=== PATIENT | male | born 1945 | race Caucasian/White ===

== ENCOUNTER 2018-08-12 04:33 | Emergency (ER) | payer MEDICARE ==
[~2018-08-12] VITALS: Ht 177.8 cm; Wt 77.1 kg
[~2018-08-12 04:33] MED LIST: AMAN100; AMOX500 PO; CARB25 PO; CARBI50; CART1OPSO BOTHEYES; DOXY100 PO; LATA.005SO LEFTEYE; SIMV10 PO; TAMS.4ER PO
[2018-08-12 05:04] LABS: Source, Urine Catheter
[2018-08-12 05:06] LABS: Bilirubin, Urine Neg (Neg); Blood, Urine Neg (Neg); Glucose Qualitative, Urine Neg (Neg); Ketones, Urine Neg (Neg); Leukocyte Esterase, Urine Neg (Neg); Nitrite, Urine Neg (Neg); Protein, Urine Neg (Neg); Urobilinogen, Urine NORM (Normal); pH, Urine 6.5 (5.0-8.0)
[2018-08-12 05:11] LABS: Appearance, Urine Clear (Clear); Color, Urine Yellow (P-Yellow)
== END 2018-08-12 05:41 | disposition home or self-care (01) ==
LOC: ER 04:33
PROVIDERS: Emergency Medicine
DX: R33.9 Retention of urine, unspecified (principal); Z88.8 Allergy status to other drugs, medicaments and biological substances; Z79.899 Other long term (current) drug therapy
CPT/HCPCS: 51702; 51798; 81003; 99283

== ENCOUNTER 2018-11-21 03:58 | Emergency (ER) | payer MEDICARE ==
[~2018-11-21] VITALS: Ht 177.8 cm; Wt 77.1 kg
[2018-11-21] MEDS ORDERED: Keflex500 MG PO (08:09)
== END 2018-11-21 08:30 | disposition home or self-care (01) ==
LOC: ER 03:58
DX: S01.311A Laceration without foreign body of right ear, initial encounter (principal); G20 Parkinson's disease; W06.XXXA Fall from bed, initial encounter; Z88.8 Allergy status to other drugs, medicaments and biological substances; Z79.899 Other long term (current) drug therapy
CPT/HCPCS: 12052; 90471; 90714; 99282-25

== ENCOUNTER → 2021-10-20 | Outpatient (CLI) | payer MEDICARE ==
[~2021-10-20] MED LIST changes: +Keflex500 MG PO
[2021-10-20 11:45] LABS: BASOPHILS ABSOLUTE AUTO 0.03 K/mm3 (0.00-0.23); BASOPHILS PERCENT AUTO 1 % (0-2); EOSINOPHILS ABSOLUTE AUTO 0.07 K/mm3 (0.00-0.68); EOSINOPHILS PERCENT AUTO 1 % (0-6); Hematocrit 39.2 % (37.0-53.0); Hemoglobin 13.1 g/dL (13.5-17.5); IMMATURE GRAN ABSOLUTE AUTO 0.02 K/mm3 (0.00-0.10); IMMATURE GRAN PERCENT AUTO 0 % (0-1); LYMPHOCYTES ABSOLUTE AUTO 0.92 K/mm3 (0.84-5.20); LYMPHOCYTES PERCENT AUTO 18 % (21-46); MONOCYTES ABSOLUTE AUTO 0.97 K/mm3 (0.16-1.47); MONOCYTES PERCENT AUTO 19 % (4-13); Mean Corpuscular HGB 31.1 pg (26.0-34.0); Mean Corpuscular HGB Conc 33.4 g/dL (31.5-36.5); Mean Corpuscular Volume 93 fL (80-100); NEUTROPHILS ABSOLUTE AUTO 3.11 K/mm3 (1.96-9.15); NEUTROPHILS PERCENT AUTO 61 % (41-73); RDW Coefficient Variation 13.1 % (11.7-14.2); RDW Standard Deviation 44.3 fL (35.1-46.3); Red Blood Cell Count 4.21 M/mm3 (4.30-5.90); White Blood Cell Count 5.12 K/mm3 (4.00-11.30)
[2021-10-20 12:01] LABS: Mean Platelet Volume 10.6 fL (9.1-12.4); Platelet Count 133 K/mm3 (150-400)
[2021-10-20 12:09] LABS: Alanine Aminotransfer (ALT/SGP 8 U/L (12-78); Albumin, Blood 3.9 g/dL (3.4-5.0); Albumin/Globulin Ratio 1.4 (0.8-1.8); Alk Phos 69 U/L (40-126); Anion Gap 10 mmol/L (6-16); Aspartate Aminotrans (AST/SGOT 14 U/L (12-37); Bilirubin, Total 1.1 mg/dL (0.1-1.0); Blood Urea Nitrogen 18 mg/dL (8-24); CO2, Blood 26 mmol/L (21-32); Calcium, Blood 8.9 mg/dL (8.5-10.1); Chloride, Blood 109 mmol/L (98-108); Creatinine, Blood 1.06 mg/dL (0.60-1.20); Globulin, Blood 2.7 g/dL (2.2-4.0); Glomerular Filtration Rate >60 (60-); Glucose, Blood 119 mg/dL (70-99); Potassium, Blood 4.3 mmol/L (3.5-5.5); Sodium, Blood 145 mmol/L (136-145); Thyroid Stimulating Hormone 0.679 uIU/mL (0.360-4.800); Total Protein, Blood 6.6 g/dL (6.4-8.2)
== END ==
LOC: LAB SHORT 11:32
PROVIDERS: Physician Assistant
DX: R06.00 Dyspnea, unspecified (principal); R53.83 Other fatigue
CPT/HCPCS: 80053; 83880; 84443; 84484; 85025; 85379

== ENCOUNTER 2023-07-20 01:52 | Inpatient (IN) | payer MEDICARE ==
[2023-07-20] VITALS (9 sets, daily range): BP systolic 106–155; BP diastolic 55–89
[~2023-07-20] VITALS: Ht 177.8 cm; Wt 83.6 kg
[2023-07-20] MEDS ORDERED: OMEP20ER PO (04:42)
[2023-07-20] MEDS ORDERED: GLYC2 PO (04:42)
[2023-07-20] MEDS ORDERED: CARBIDOPA-LEVO1 EA15 PO (04:43)
[2023-07-20] MEDS ORDERED: MEMA10 PO (04:44)
[2023-07-20] MEDS ORDERED: QUET25 PO (04:44)
[2023-07-20] MEDS ORDERED: Seroquel Xr150 MG PO (04:45)
[2023-07-20] MEDS ORDERED: DONE5 PO (04:45)
[2023-07-20] MEDS ORDERED: METFORMIN ER G500 MG PO (04:45)
[2023-07-20] MEDS ORDERED: THERA-D2000 UNIT PO (04:46)
[2023-07-20] MEDS ORDERED: ATOR40TA PO (04:46)
[2023-07-20] MEDS ORDERED: OPTH BOTHEYES (04:47)
[2023-07-20] MEDS ORDERED: [UNRECOGNIZED DRUG - OTHER] BOTHEYES (04:47)
[2023-07-20] MEDS ORDERED: [UNRECOGNIZED DRUG - CODE] BOTHEYES (04:47)
[2023-07-20 06:07] LABS: BASOPHILS ABSOLUTE AUTO 0.03 K/mm3 (0.00-0.23); BASOPHILS PERCENT AUTO 0 % (0-2); EOSINOPHILS PERCENT AUTO 0 % (0-6); Hematocrit 43.1 % (37.0-53.0); Hemoglobin 14.3 g/dL (13.5-17.5); IMMATURE GRAN ABSOLUTE AUTO 0.04 K/mm3 (0.00-0.10); IMMATURE GRAN PERCENT AUTO 0 % (0-1); LYMPHOCYTES ABSOLUTE AUTO 0.63 K/mm3 (0.84-5.20); LYMPHOCYTES PERCENT AUTO 5 % (21-46); MONOCYTES ABSOLUTE AUTO 0.92 K/mm3 (0.16-1.47); MONOCYTES PERCENT AUTO 8 % (4-13); Mean Corpuscular HGB 30.2 pg (26.0-34.0); Mean Corpuscular HGB Conc 33.2 g/dL (31.5-36.5); Mean Corpuscular Volume 91 fL (80-100); Mean Platelet Volume 10.9 fL (9.1-12.4); NEUTROPHILS ABSOLUTE AUTO 10.31 K/mm3 (1.96-9.15); NEUTROPHILS PERCENT AUTO 86 % (41-73); Platelet Count 156 K/mm3 (150-400); RDW Coefficient Variation 13.2 % (11.7-14.2); RDW Standard Deviation 43.8 fL (35.1-46.3); Red Blood Cell Count 4.74 M/mm3 (4.30-5.90); White Blood Cell Count 11.93 K/mm3 (4.00-11.30)
[2023-07-20 06:33] LABS: Albumin, Blood 4.3 g/dL (3.4-5.0); Albumin/Globulin Ratio 1.4 (0.8-1.8); Bilirubin, Total 0.7 mg/dL (0.1-1.0); Bun/Creatinine Ratio 31.9 (12.0-20.0); Calcium, Blood 9.3 mg/dL (8.5-10.1); Creatinine, Blood 1.19 mg/dL (0.60-1.20); Globulin, Blood 3.1 g/dL (2.2-4.0); Magnesium, Blood 2.2 mg/dL (1.6-2.4); Potassium, Blood 4.4 mmol/L (3.5-5.5); Total Protein, Blood 7.4 g/dL (6.4-8.2)
[2023-07-20 06:37] LABS: Base Excess Venous 2.1 mmol/L; Bicarbonate Venous 24.7 mmol/L (24.0-30.0); PCO2 Venous 57.7 mmHg (38-42)
[2023-07-20 06:58] LABS: Influenza A, PCR NEGATIVE (NEGATIVE); Influenza B, PCR NEGATIVE (NEGATIVE); Resp Syncytial Virus, PCR NEGATIVE (NEGATIVE); SARS-Cov-2 (COVID-19) PCR, MMC NEGATIVE (NEGATIVE)
--- NOTE | 2023-07-20 08:13 | NUR ---
ASSUMED CARE: PT ARRIVED TO ROOM WITH 3L O2 IN PLACE. AWAKE AND TALKING TO STAFF. AT BEDSIDE. NSR AT 85 ON TELE. ASSISTED WITH URINAL AND PLACED CLEAN ATTENDS. CALL LIGHT IN REACH. ASKING ABOUT WATER. REVIEWING ORDERS AT THIS TIME.
[2023-07-20] MEDS ORDERED: VITAMIN D350 MC3 PO (08:27)
--- NOTE | 2023-07-20 08:58 | NUR ---
CALL TO DR BENTON TO RELAY PT'S CURRENT STATUS AND PT AND FAMILY ASKING ABOUT EATING. ORDERED SPEECH EVALUATION. NPO AT THIS TIME.
--- NOTE | 2023-07-20 09:39 | NUR ---
SPEECH THERAPIST AT BEDSIDE
--- NOTE | 2023-07-20 09:57 | NUR ---
DR BENTON NOTIFIED OF SPEECH EVALUATION. STATES SHE WILL REVIEW ORAL MEDS AND ORDER ABLE. DENTAL HYGIENIST AT BEDSIDE NOW
--- NOTE | 2023-07-20 17:41 | NUR ---
SHIFT SUMMARY: PT NEW ADMIT TODAY. CURRENTLY ON 3L O2 VIA NC. NSR IN 70S ON TELE. EVALUATED BY SPEECH THERAPY TODAY WITH PLANS FOR BARIUM SWALLOW TOMORROW. FAMILY AWARE AND HAVE BEEN EDUCATED AND UPDATED ON STATUS. NO ACUTE NEEDS OR CONCERNS AT THIS TIME.
[2023-07-21 04:12] VITALS: BP 133/64
[2023-07-21 05:36] LABS: Hematocrit 37.3 % (37.0-53.0); Hemoglobin 12.4 g/dL (13.5-17.5); Mean Corpuscular HGB Conc 33.2 g/dL (31.5-36.5); Mean Corpuscular Volume 90 fL (80-100); Mean Platelet Volume 11.1 fL (9.1-12.4); Platelet Count 132 K/mm3 (150-400); RDW Coefficient Variation 13.3 % (11.7-14.2); RDW Standard Deviation 44.4 fL (35.1-46.3); Red Blood Cell Count 4.13 M/mm3 (4.30-5.90); White Blood Cell Count 10.26 K/mm3 (4.00-11.30)
[2023-07-21 05:58] LABS: Bun/Creatinine Ratio 36.1 (12.0-20.0); Calcium, Blood 8.8 mg/dL (8.5-10.1); Creatinine, Blood 0.94 mg/dL (0.60-1.20); Potassium, Blood 4.1 mmol/L (3.5-5.5)
--- NOTE | 2023-07-21 06:20 | NUR ---
SHIFT SUMMARY PATIENT ALERT AND ORIENTED X3, OCCASIONALLY CONFUSED BUT EASILY REORIENTED. BEDREST CURRENTLY. PATIENT HAD NO COMPLAINTS OF PAIN OR SHORTNESS OF BREATH. CONDOM CATHETER IN PLACE AND DRAINING TO GRAVITY. PATIENT TITRATED TO ROOM AIR, CURRENTLY SATING AT 92%. VITAL SIGNS STABLE, SINUS TERI ON TELE WHEN SLEEPING. NO ACUTE ISSUES NOTED OVERNIGHT. WILL CONTINUE TO MONITOR. CALL LIGHT WITHIN REACH.
[2023-07-21 06:30] LABS: BAND PERCENT MAN 10 % (0-8); BASOPHILS PERCENT MAN 1 % (0-2); EOSINOPHILS PERCENT MAN 0 % (0-6); LYMPHOCYTES ABSOLUTE MAN 0.61 K/mm3 (0.84-5.20); LYMPHOCYTES PERCENT MAN 6 % (21-46); MONOCYTES PERCENT MAN 2 % (4-13); NEUTROPHILS ABSOLUTE MAN 9.33 K/mm3 (1.96-9.15); SEG NEUTROPHILS PERCENT MAN 81 % (41-73); TOTAL CELLS COUNTED 100
[2023-07-21 07:27] VITALS: BP 119/77
--- NOTE | 2023-07-21 10:06 | NUR ---
PT IS NOW A/O X4, CONFUSION DID NOT LAST VERY LONG AFTER WAKING
--- NOTE | 2023-07-21 11:02 | NUR ---
PT HAS RETURNED FROM [facility] SWALLOW STUDY, THERE ARE NO UPDATES FROM STUDY AT THIS TIME
[2023-07-21 14:50] VITALS: BP 122/86
--- NOTE | 2023-07-21 15:07 | NUR ---
PT NOW MECH/SOFT, HE NOW HAS MEDICATIONS CRUSHED IN APPLESAUCE. HE IS EATING PUDDING AT THIS TIME W/O DIFFICULTY
--- NOTE | 2023-07-21 15:18 | NUR ---
PT IS SPONTANEOUS EXITING CHAIR THAT PHYSICAL THERAPY HAS PLACED HIM IN WITHOUT TAB ALARM. PT IS PLACED INTO A RECLINER WITH TAB ALARM. FLUIDS ARE STOPPED PER ORDER FROM DR BENTON WILL RESTART HIS METFORMIN IN THE MORNING NOW THAT DIET HAS STARTED. I SPOKE WITH PALLIATIVE CARE ABOUT PATIENT THIS AFTERNOON THEY ARE UPDATED ABOUT PATIENT'S IMPROVEMENT IN STATUS. HE IS NOW ON ROOM AIR WITH SPO2 GREATER THAN 94%.
--- NOTE | 2023-07-21 17:33 | NUR ---
PT PREPARING TO EAT HIS MECHANICAL SOFT DINNER TRAY. PT IS ALERT, INTERACTING WELL WITH STAFF. VSS. NADN. CONTINUES TO DENY CP OR SOB. HE IS ON RA AT THE TIME OF THIS NOTE. PT HAS UNASYN INFUSING AT THIS TIME. FAMILY IS UPDATED ABOUT PENDING TRANSFER TO MEDCIAL FLOOR, WILL GIVE MEDICAL FLOOR RN REPORT SHORTLY.
--- NOTE | 2023-07-21 18:42 | NUR ---
Received transfer from PCU at 1800 via wc. Pt alert to self and place. Resp even nonlabored. Min ast to bed. Oriented to room and call light. Son at bedside. No needs id or verbalized at this time.
[2023-07-21 20:11] VITALS: BP 140/77
[2023-07-22 02:16] VITALS: BP 143/74
--- NOTE | 2023-07-22 04:14 | NUR ---
SHIFT SUMMARY PT ALERT AND ORIENTED TO SELF AND PLACE. MENTATION CHANGED DURING THE NIGHT AND PT SHOWED INCREASED CONFUSION AND IMPULSIVENESS. PT ABLE TO BE REORIENTED AND INSTRUCTED ON FALL PRECAUTIONS. NO ACUTE EVENTS OCCURED DURING SHIFT. VSS. PT LEFT IN A POSITION OF SAFETY WITH APPROPRIATE FALL PRECAUTIONS IN PLACE AND CALL LIGHT IN REACH.
[2023-07-22] MEDS ORDERED: QUETIAPINE FUM10011 PO (13:17)
[2023-07-22 17:20] VITALS: BP 139/84
--- NOTE | 2023-07-22 18:32 | NUR ---
SHIFT SUMMARY- PT IS ALERT PLESANT AND COOPERATIVE. HE CAN BE FORGETFUL AT TIMES. HE RECIEVED A SHOWER THIS SHIFT. HE IS RECIEVING IV ABS. HE IS EATING AND DRINKING WELL. HIS BED IS IN THE LOW POSITON, BED ALARM ON, AND CALL LIGHT IS WITHIN REACH.
[2023-07-22 19:41] VITALS: BP 168/75
[2023-07-23 03:16] VITALS: BP 151/73
--- NOTE | 2023-07-23 05:01 | NUR ---
1900: ASSUMED CARE OF PT, BEDSIDE REPORT RECEIVED FROM DAY SHIFT RN. PT IS SITTING UP IN THE BED, FAMILY AT THE BEDSIDE. A/O X4, SLOW TO ANSWER QUESTIONS. VSS, MEDICATIONS PROVIDED CRUSHED IN APPLESAUCE, TOLERATED WELL. EDUCATED ON STRONG SWALLOWS AND SITTING UP POST INTAKE TO HELP PREVENT ASPIRATION. PT VERBALIZED UNDERSTANDING. ASSISTED DURING THE NIGHT FOR COMFORT. SAFETY MEASURES TAKEN, CALL LIGHT WITHIN REACH. ALL NEEDS ADDRESSED. POSSIBLE D/C HOME TODAY.
[2023-07-23 07:41] VITALS: BP 144/76
[2023-07-23] MEDS ORDERED: VISBIOME 112.51 EACH PO (10:29)
[2023-07-23] MEDS ORDERED: AMOXICILLI250 MG/5 M PO (10:31)
[2023-07-23] MEDS ORDERED: Prevacid Soluta30 MG PO (10:32)
[2023-07-23] MEDS ORDERED: METF500 PO (10:33)
== END 2023-07-23 12:03 | disposition home or self-care (01) | DRG 177 ==
LOC: ER 01:52 → PCU 07:22 → MEDS 07:22 → PCU 07:37 → MEDS 07-21 18:04
PROVIDERS: Emergency Medicine; Internal Medicine; ADMIT Internal Medicine
DX: J69.0 Pneumonitis due to inhalation of food and vomit (principal); J96.01 Acute respiratory failure with hypoxia; N40.0 Benign prostatic hyperplasia without lower urinary tract symptoms; G20.A1 Parkinson's disease without dyskinesia, without mention of fluctuations; F02.80 Dementia in other diseases classified elsewhere, unspecified severity, without behavioral disturbance, psychotic disturbance, mood disturbance, and anxiety; R13.12 Dysphagia, oropharyngeal phase; Z96.642 Presence of left artificial hip joint; Z88.8 Allergy status to other drugs, medicaments and biological substances; Z79.899 Other long term (current) drug therapy; Z79.84 Long term (current) use of oral hypoglycemic drugs
CPT/HCPCS: 0241U; 36415; 71045; 71046; 74230; 80048; 80053; 82803; 82947; 83605; 83735; 83880; 84484; 85025; 92526; 92610; 92611; 96361; 96374; 96375; 97110; 97116; 97162; 97165; 97530; 97535; 99284-25; A9270; C9113; J0295; J1650; J2405; J2930; J7030; J7050

== ENCOUNTER → 2024-10-28 | Outpatient (CLI) | payer MEDICARE ==
[~2024-10-28] MED LIST changes: +ALBU90OI PO; +AMOCLA875 PO; +AMOXICILLI250 MG/5 M PO; +ATOR40TA PO; +CARBIDOPA-LEVO1 EA15 PO; +CEPH500 PO; +DECADRON6 M1 PO; +DONE5 PO; +DONEPEZIL HCL5 M2 PO; +GLYC2 PO; +MEMA10 PO; +METF500 PO; +METFORMIN ER G500 MG PO; +MULTI-VITAMIN1 EAC2 PO; +OMEP20ER PO; +OPTH BOTHEYES; +Prevacid Soluta30 MG PO; +QUET25 PO; +QUETIAPINE FUM10011 PO; +Seroquel Xr150 MG PO; +THERA-D2000 UNIT PO; +VISBIOME 112.51 EACH PO; +VITAMIN D350 MC3 PO; +ZOCOR20 MG PO; +[UNRECOGNIZED DRUG - CODE] BOTHEYES; +[UNRECOGNIZED DRUG - OTHER] BOTHEYES
[2024-10-28 10:36] LABS: BASOPHILS ABSOLUTE AUTO 0.02 K/mm3 (0.00-0.23); BASOPHILS PERCENT AUTO 0 % (0-2); EOSINOPHILS ABSOLUTE AUTO 0.04 K/mm3 (0.00-0.68); EOSINOPHILS PERCENT AUTO 1 % (0-6); Hematocrit 41.1 % (37.0-53.0); Hemoglobin 13.4 g/dL (13.5-17.5); IMMATURE GRAN ABSOLUTE AUTO 0.03 K/mm3 (0.00-0.10); IMMATURE GRAN PERCENT AUTO 0 % (0-1); LYMPHOCYTES ABSOLUTE AUTO 0.33 K/mm3 (0.84-5.20); LYMPHOCYTES PERCENT AUTO 4 % (21-46); MONOCYTES ABSOLUTE AUTO 0.61 K/mm3 (0.16-1.47); MONOCYTES PERCENT AUTO 8 % (4-13); Mean Corpuscular HGB 30.1 pg (26.0-34.0); Mean Corpuscular HGB Conc 32.6 g/dL (31.5-36.5); Mean Corpuscular Volume 92 fL (80-100); Mean Platelet Volume 10.1 fL (9.1-12.4); NEUTROPHILS ABSOLUTE AUTO 6.97 K/mm3 (1.96-9.15); NEUTROPHILS PERCENT AUTO 87 % (41-73); Platelet Count 141 K/mm3 (150-400); RDW Coefficient Variation 13.2 % (11.7-14.2); RDW Standard Deviation 44.1 fL (35.1-46.3); Red Blood Cell Count 4.45 M/mm3 (4.30-5.90)
[2024-10-28 10:52] LABS: Albumin, Blood 4.3 g/dL (3.4-5.0); Albumin/Globulin Ratio 1.4 (0.8-1.8); Bilirubin, Total 1.2 mg/dL (0.1-1.0); Calcium, Blood 9.3 mg/dL (8.5-10.1); Creatinine, Blood 1.13 mg/dL (0.60-1.20); Potassium, Blood 4.2 mmol/L (3.5-5.5); Total Protein, Blood 7.3 g/dL (6.4-8.2)
[2024-10-28 10:56] LABS: BAND PERCENT MAN 9 % (0-8); BASOPHILS PERCENT MAN 0 % (0-2); EOSINOPHILS PERCENT MAN 0 % (0-6); LYMPHOCYTES ABSOLUTE MAN 0.16 K/mm3 (0.84-5.20); LYMPHOCYTES PERCENT MAN 2 % (21-46); MONOCYTES ABSOLUTE MAN 0.48 K/mm3 (0.16-1.47); MONOCYTES PERCENT MAN 6 % (4-13); NEUTROPHILS ABSOLUTE MAN 7.36 K/mm3 (1.96-9.15); SEG NEUTROPHILS PERCENT MAN 83 % (41-73); TOTAL CELLS COUNTED 100
== END ==
LOC: LAB 10:32 → LAB SHORT 10:32
PROVIDERS: Physician Assistant
DX: R41.0 Disorientation, unspecified (principal)
CPT/HCPCS: 80053; 85025

== ENCOUNTER 2024-10-29 12:48 | Inpatient (IN) | payer MEDICARE ==
[~2024-10-29] VITALS: Ht 177.8 cm; Wt 70.0 kg
[~2024-10-29 12:48] MED LIST changes: -ALBU90OI PO; -AMOCLA875 PO; -CEPH500 PO; -DECADRON6 M1 PO; -DONEPEZIL HCL5 M2 PO; -MULTI-VITAMIN1 EAC2 PO; -ZOCOR20 MG PO
[2024-10-29 13:59] LABS: BASOPHILS ABSOLUTE AUTO 0.03 K/mm3 (0.00-0.23); BASOPHILS PERCENT AUTO 0 % (0-2); EOSINOPHILS ABSOLUTE AUTO 0.01 K/mm3 (0.00-0.68); EOSINOPHILS PERCENT AUTO 0 % (0-6); Hematocrit 40.6 % (37.0-53.0); Hemoglobin 13.3 g/dL (13.5-17.5); IMMATURE GRAN ABSOLUTE AUTO 0.03 K/mm3 (0.00-0.10); IMMATURE GRAN PERCENT AUTO 0 % (0-1); LYMPHOCYTES ABSOLUTE AUTO 1.25 K/mm3 (0.84-5.20); LYMPHOCYTES PERCENT AUTO 14 % (21-46); MONOCYTES ABSOLUTE AUTO 1.09 K/mm3 (0.16-1.47); MONOCYTES PERCENT AUTO 12 % (4-13); Mean Corpuscular HGB 29.8 pg (26.0-34.0); Mean Corpuscular HGB Conc 32.8 g/dL (31.5-36.5); Mean Corpuscular Volume 91 fL (80-100); Mean Platelet Volume 10.7 fL (9.1-12.4); NEUTROPHILS ABSOLUTE AUTO 6.48 K/mm3 (1.96-9.15); NEUTROPHILS PERCENT AUTO 73 % (41-73); Platelet Count 134 K/mm3 (150-400); RDW Coefficient Variation 13.2 % (11.7-14.2); RDW Standard Deviation 44.4 fL (35.1-46.3); Red Blood Cell Count 4.46 M/mm3 (4.30-5.90); White Blood Cell Count 8.89 K/mm3 (4.00-11.30)
[2024-10-29 14:18] LABS: Albumin, Blood 3.8 g/dL (3.4-5.0); Albumin/Globulin Ratio 1.3 (0.8-1.8); Bun/Creatinine Ratio 26.5 (12.0-20.0); Calcium, Blood 8.8 mg/dL (8.5-10.1); Creatinine, Blood 1.17 mg/dL (0.60-1.20); Potassium, Blood 3.9 mmol/L (3.5-5.5); Total Protein, Blood 6.8 g/dL (6.4-8.2)
[2024-10-29] MEDS ORDERED: Bisacodyl 10 MG Supp PR PRN (15:35)
[2024-10-29] MEDS ORDERED: Ondansetron 4 MG TAB PO PRN (15:40)
[2024-10-29] MEDS ORDERED: Magnesium Hydroxide Conc 10 ML UDC PO PRN (15:40)
[2024-10-29] MEDS ORDERED: Lactated Ringer's 1,000 ML IV SCH (15:40)
[2024-10-29] MEDS ORDERED: TraZODone HCl 50 MG Tab PO PRN (15:40)
[2024-10-29] MEDS ORDERED: QUEtiapine Fumarate 25 MG Tab PO PRN (15:45)
[2024-10-29] MEDS ORDERED: NS 1,000 ML IV SCH (15:50)
[2024-10-29] MEDS ORDERED: CefTRIAXone Sodium 2,000 MG in NS 100 ML IV SCH (16:00)
[2024-10-29] MEDS ORDERED: OMEP20ER PO ×2 (17:01)
[2024-10-29] MEDS ORDERED: DONEPEZIL HCL5 M2 PO ×2 (17:03)
[2024-10-29] MEDS ORDERED: ZOCOR20 MG PO ×2 (17:04)
[2024-10-29] MEDS ORDERED: AMOCLA875 PO ×2 (17:05)
[2024-10-29] MEDS ORDERED: MULTI-VITAMIN1 EAC2 PO ×2 (17:05)
[2024-10-29 17:54] LABS: Influenza A, PCR NEGATIVE (NEGATIVE); Influenza B, PCR NEGATIVE (NEGATIVE); Resp Syncytial Virus, PCR NEGATIVE (NEGATIVE)
[2024-10-29 17:55] LABS: SARS-Cov-2 (COVID-19) PCR, MMC POSITIVE (NEGATIVE)
[2024-10-29 18:54] VITALS: BP 129/71
[2024-10-29] MEDS ORDERED: Lactobacil 2-S.Thermo-Bifido 1 1 Cap PO SCH (21:00)
[2024-10-29] MEDS ORDERED: Memantine HCL 5 MG Tab PO SCH (21:00)
[2024-10-29] MEDS ORDERED: Timolol 0.25% Opth Soln 5 ml BOTHEYES SCH (21:00)
[2024-10-29] MEDS ORDERED: Levodopa/Carbidopa 100 / 25 MG Tab PO SCH (21:00)
[2024-10-29] MEDS ORDERED: Oseltamivir Phosphate 75 MG Cap PO SCH (21:00)
[2024-10-29] MEDS ORDERED: Latanoprost 0.005% Opth Soln 2.5 ML BOTHEYES SCH (21:00)
[2024-10-29] MEDS ORDERED: QUEtiapine Fumarate 50 MG TAB PO SCH (21:00)
[2024-10-29] MEDS ORDERED: Glycopyrrolate 1 MG Tab PO SCH (21:00)
[2024-10-30 03:25] VITALS: BP 123/57
--- NOTE | 2024-10-30 04:57 | NUR ---
SHIFT SUMMARY - PT WAS ALERT AND ORIENTED AT THE BEGINNING OF THE SHIFT, PT AWARE OF HIS HOME MEDICATION REGIME. PT MEDICATED WITH SEROQUEL 150 MG PER HOME DOSE - PT SLEEPY AFTER MEDICATING - BUT RESPONDS TO VERBAL COMMUNICATION. CONTINUOUS BIOX ON THROUGHOUT THE NIGHT - SATS WNL ON RA. PT TOLERATED HIS PO PILLS CRUSHED IN APPLESAUCE WITHOUT COMPLICATIONS. CALL LIGHT WITHIN REACH. BED IN LOW POSITION. FLUIDS AT BEDSIDE.
[2024-10-30 05:47] LABS: BASOPHILS ABSOLUTE AUTO 0.02 K/mm3 (0.00-0.23); BASOPHILS PERCENT AUTO 0 % (0-2); EOSINOPHILS ABSOLUTE AUTO 0.04 K/mm3 (0.00-0.68); EOSINOPHILS PERCENT AUTO 1 % (0-6); Hematocrit 36.3 % (37.0-53.0); Hemoglobin 11.9 g/dL (13.5-17.5); IMMATURE GRAN ABSOLUTE AUTO 0.01 K/mm3 (0.00-0.10); IMMATURE GRAN PERCENT AUTO 0 % (0-1); LYMPHOCYTES ABSOLUTE AUTO 1.31 K/mm3 (0.84-5.20); LYMPHOCYTES PERCENT AUTO 25 % (21-46); MONOCYTES ABSOLUTE AUTO 0.84 K/mm3 (0.16-1.47); MONOCYTES PERCENT AUTO 16 % (4-13); Mean Corpuscular HGB Conc 32.8 g/dL (31.5-36.5); Mean Corpuscular Volume 91 fL (80-100); Mean Platelet Volume 10.5 fL (9.1-12.4); NEUTROPHILS ABSOLUTE AUTO 3.13 K/mm3 (1.96-9.15); NEUTROPHILS PERCENT AUTO 59 % (41-73); Platelet Count 112 K/mm3 (150-400); RDW Coefficient Variation 13.2 % (11.7-14.2); RDW Standard Deviation 44.5 fL (35.1-46.3); Red Blood Cell Count 3.97 M/mm3 (4.30-5.90); White Blood Cell Count 5.35 K/mm3 (4.00-11.30)
[2024-10-30] MEDS ORDERED: Omeprazole 20 MG CapCR PO SCH (06:00)
[2024-10-30 06:30] LABS: Magnesium, Blood 2.1 mg/dL (1.6-2.4)
[2024-10-30 06:52] LABS: Alanine Aminotransfer (ALT/SGP <6 U/L (12-78); Albumin, Blood 3.3 g/dL (3.4-5.0); Albumin/Globulin Ratio 1.3 (0.8-1.8); Alk Phos 74 U/L (50-136); Anion Gap 9 mmol/L (3-11); Aspartate Aminotrans (AST/SGOT 24 U/L (12-37); Bilirubin, Total 0.7 mg/dL (0.1-1.0); Blood Urea Nitrogen 31 mg/dL (8-24); CO2, Blood 26 mmol/L (21-32); Calcium, Blood 8.2 mg/dL (8.5-10.1); Chloride, Blood 112 mmol/L (98-108); Creatinine, Blood 1.07 mg/dL (0.60-1.20); Globulin, Blood 2.6 g/dL (2.2-4.0); Glomerular Filtration Rate 71 (60-); Glucose, Blood 94 mg/dL (70-99); Potassium, Blood 3.4 mmol/L (3.5-5.5); Sodium, Blood 144 mmol/L (136-145); Total Protein, Blood 5.9 g/dL (6.4-8.2)
[2024-10-30] MEDS ORDERED: Potassium Chloride 20 MEQ/15 ML UDC PO ONE (07:35)
[2024-10-30] MEDS ORDERED: Remdesivir (EUA) 200 MG in NS 250 ML IV ONE (07:40)
[2024-10-30 07:56] VITALS: BP 126/65
[2024-10-30] MEDS ORDERED: Cholecalciferol 1000 Unit Tablet (=25MCG) PO SCH (09:00)
[2024-10-30] MEDS ORDERED: dexAMETHasone 4 MG TAB PO SCH (09:00)
[2024-10-30] MEDS ORDERED: QUEtiapine Fumarate 25 MG Tab PO SCH (09:00)
[2024-10-30] MEDS ORDERED: Enoxaparin 40 MG/0.4 ML SYR SC SCH (09:00)
[2024-10-30] MEDS ORDERED: Lansoprazole 15 MG TAB.RAP.DR PO SCH (09:00)
[2024-10-30 15:02] VITALS: BP 100/58
--- NOTE | 2024-10-30 19:21 | NUR ---
DAY SHIFT SUMMARY: NO ACUTE CHANGES TO REPORT THIS SHIFT. PT A&O; CALM AND COOPERATIVE WITH CARE. NO C/O PAIN OR NAUSEA THIS SHIFT. SWALLOWING DIFFICULTIES; PO MEDS CRUSHED IN APPLESAUCE; 90 DEGRESS UPRIGHT FOR PO INTAKE; THIN LIQUIDS. COVID POSITIVE; REMDESEVIR STARTED THIS SHIFT. HX PARKINSON'S; PHYSICAL THERAPY FOLLOWING. IV ABX CONTINUING. REPORT GIVEN TO ONCOMING RN.
[2024-10-30 19:26] VITALS: BP 122/74
[2024-10-31] MEDS ORDERED: OLANZapine 10 MG Vial IM ONE (02:15)
[2024-10-31 03:23] VITALS: BP 177/87
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
--- NOTE | 2024-10-31 06:42 | NUR ---
ONCE PT WAS ALERT AND AWAKE THIS AM MORNINGS MEDS WERE GIVEN RX.
[2024-10-31 07:29] VITALS: BP 145/71
[2024-10-31 07:40] LABS: Hematocrit 39.7 % (37.0-53.0); Hemoglobin 13.2 g/dL (13.5-17.5); Mean Corpuscular HGB 29.8 pg (26.0-34.0); Mean Corpuscular HGB Conc 33.2 g/dL (31.5-36.5); Mean Corpuscular Volume 90 fL (80-100); Mean Platelet Volume 10.9 fL (9.1-12.4); Platelet Count 136 K/mm3 (150-400); RDW Coefficient Variation 12.8 % (11.7-14.2); RDW Standard Deviation 42.2 fL (35.1-46.3); Red Blood Cell Count 4.43 M/mm3 (4.30-5.90)
[2024-10-31 08:16] LABS: Albumin, Blood 3.4 g/dL (3.4-5.0); Albumin/Globulin Ratio 1.1 (0.8-1.8); Bilirubin, Total 0.6 mg/dL (0.1-1.0); Bun/Creatinine Ratio 28.4 (12.0-20.0); Calcium, Blood 8.7 mg/dL (8.5-10.1); Creatinine, Blood 0.92 mg/dL (0.60-1.20); Magnesium, Blood 2.1 mg/dL (1.6-2.4); Potassium, Blood 3.8 mmol/L (3.5-5.5); Total Protein, Blood 6.4 g/dL (6.4-8.2)
[2024-10-31] MEDS ORDERED: Remdesivir (EUA) 100 MG in NS 250 ML IV SCH (12:00)
--- NOTE | 2024-10-31 16:05 | NUR ---
SHIFT SUMMARY PT AOX3, COOPERATIVE, ABLE TO MAKE NEEDS KNOWN. PT IS ON ENCHANCED DROPLET PRECAUTION FOR COVID. PT IN INC OF URINE, PARKING ANALYST CHANGED BRIEFS. PT HAS REMAINED IN CHAIR FOR ABOUT 3-5 HOURS OF SHIFT. FAMILY ALWAYS AT BEDSIDE. TAKE MEDICATION CRUSHED IN APPLESAUCE. BED IN LOWEST POSITION, CALL LIGHT WITHIN REACH.
[2024-10-31] MEDS ORDERED: LORazepam 1 MG Tab PO ONE (17:10)
[2024-10-31 20:16] VITALS: BP 156/78
[2024-11-01 02:14] VITALS: BP 122/63
--- NOTE | 2024-11-01 05:12 | NUR ---
PT TOOK PM MEDICATION AND SLEPT T/O THIS SHIFT. HAD ASYMTOMATIC BRADYCARDIA AT TIMES T/O SHIFT. NO ACUTE CHANGES NOTED T/O THSI SHIFT.HOURLY ROUNDING DONE ON PT NO ACUTE S/S OF DISTRESS NOTED.
[2024-11-01 06:21] LABS: Hematocrit 40.6 % (37.0-53.0); Hemoglobin 13.5 g/dL (13.5-17.5)
[2024-11-01 06:55] LABS: Bun/Creatinine Ratio 29.6 (12.0-20.0); Calcium, Blood 8.8 mg/dL (8.5-10.1); Creatinine, Blood 0.91 mg/dL (0.60-1.20); Potassium, Blood 3.8 mmol/L (3.5-5.5)
[2024-11-01 07:46] VITALS: BP 152/73
[2024-11-01] MEDS ORDERED: NS 250 ML IV PRN (12:30)
--- NOTE | 2024-11-01 17:48 | NUR ---
SHIFT SUMMARY PT AOX3/4, COOPERATIVE, ABLE TO MAKE NEEDS KNOWN. PT ON ISOLATION FOR COVID. TOELRATING PO AND IV MEDICATION. STAYED IN BED FOR MOST OF SHIFT. HAD EXHAUSTING THERAPY SESSION YESTERDAY. POSSIBLE DC TOMORROW WITH HOME HEALTH. BED IN LOWEST POSITION, CALL LIGHT WITHIN REACH.
[2024-11-01 19:28] VITALS: BP 154/72
--- NOTE | 2024-11-02 03:00 | NUR ---
SHIFT SUMMARY NO ACUTE EVENTS DURING THIS SHIFT. @HS BY THE BEDSIDE. HS MEDICATIONS CRUSHED WITH PUDDING. PT DENIES PAIN AND DISCOMFORT. HS B. BED ALARM FOR SAFETY. PT IS A/O X3, ABLE TO MAKE HIS NEEDS KNOWN, PLEASANT AND COOPERATIVE WITH CARE. BED AT THE LOWEST POSITION, CALL LIGHT W/I REACH. PT IS ABLE TO MAKE HIS NEEDS KNOWN.
[2024-11-02 03:17] VITALS: BP 138/61
[2024-11-02 07:27] VITALS: BP 163/85
[2024-11-02] MEDS ORDERED: HydrALAZINE HCl 20 MG / ML 1ML Vial IV PRN (07:55)
--- NOTE | 2024-11-02 13:30 | NUR ---
DISCHARGE NOTE PATIENT A/OX3, ABLE TO MAKE NEEDS KNOWN. SOFT SLOW SPEECH, ABLE TO FOLLOW DIRECTIONS. FAMILY AT BEDSIDE THROUGHOUT THE SHIFT. PATIENT PARTICIPATED IN PHYSICAL THERAPY AND OCCUPATIONAL THERAPY. IV REMOVED PRIOR TO DISCHARGE. PATIENT ADN FAMILY EDUCATED REGARDING DISCHARGE PLAN, FOLLOW UP APPOINTMENTS, AND NEW MEDICATIONS. PATIENT AND FAMILY WITH NO QUESTIONS AT TIME OF DISCHARGE. PATIENT ASSISTED TO FAMILY VEHICLE VIA WHEELCHAIR BY [facility] STAFF. NO OTHER CONCERNS.
[2024-11-02] MEDS ORDERED: DECADRON6 M1 PO ×2 (14:34)
[2024-11-02] MEDS ORDERED: ALBU90OI PO ×2 (14:36)
[2024-11-02] MEDS ORDERED: CEPH500 PO ×2 (14:37)
== END 2024-11-02 15:23 | disposition home health service (06) | DRG 177 ==
LOC: ER 12:48 → MEDS 12:49
PROVIDERS: Emergency Medicine; ADMIT Hospitalist
PROC: XW033E5 Introduction of Remdesivir Anti-infective into Peripheral Vein, Percutaneous Approach, New Technology Group 5 (ICD-10-PCS; principal; 2024-10-30)
DX: U07.1 COVID-19 (principal); J12.82 Pneumonia due to coronavirus disease 2019; G20.A1 Parkinson's disease without dyskinesia, without mention of fluctuations; F02.80 Dementia in other diseases classified elsewhere, unspecified severity, without behavioral disturbance, psychotic disturbance, mood disturbance, and anxiety; E11.9 Type 2 diabetes mellitus without complications; N40.0 Benign prostatic hyperplasia without lower urinary tract symptoms; Z96.642 Presence of left artificial hip joint; H40.9 Unspecified glaucoma; E78.5 Hyperlipidemia, unspecified; R53.1 Weakness; Z79.899 Other long term (current) drug therapy; Z79.84 Long term (current) use of oral hypoglycemic drugs; Z88.8 Allergy status to other drugs, medicaments and biological substances; Z79.2 Long term (current) use of antibiotics
CPT/HCPCS: 0241U; 36415; 71045; 80048; 80053; 82947; 83735; 84100; 85014; 85018; 85025; 85027; 92610; 93005; 93010; 94762; 96365; 96366; 96372; 96376; 97110; 97116; 97161; 97165; 97530; 97535; 99285-25; A9270; G0378; J0248; J0696; J1650; J7030; J7050